=== PATIENT | male | born 2000 | race Caucasian/White ===

== ENCOUNTER 2021-05-06 22:19 | Emergency (ER) | payer OTHER, SELFPAY ==
[2021-05-06 22:26] VITALS: BP 112/61; PULSE 78; RESP 16; TEMP 36.7; O2SAT 98; BMI 22.1
[2021-05-06 22:59] LABS: IDNOW Serial# 9DD0AD1C; Strep A Nucleic Acid Negative (Negative)
[2021-05-06 23:04] LABS: COVID-19 Test Negative (Negative)
--- NOTE | 2021-05-06 23:21 | ED.URI ---
HPI - URI/Sore Throat General Chief Complaint: Upper Respiratory Symptoms Stated Complaint: sore throat, congestion Source: patient Mode of arrival: ambulatory Limitations: no limitations History of Present Illness HPI Narrative: 20 yold male presents to the ED for sore throat, runny nose, and headache that started today. patient denies chest pain, shortness, fever, chills, chest pain, or shortness of breath. Patient states he is vaccinated against covid. MD elicited complaint: cough Related Data Allergies Allergy/AdvReac Type Severity Reaction Status Date / Time No Known Allergies Allergy Verified 05/06/21 22:41 [No Known Allergies*] Review of Systems Review of Systems: Yes all other systems are reviewed and are negative Constitutional: Constitutional: Reports as per HPI, Reports no additional constitutional complaints and Reports body ache(s) Eyes: Eyes: Reports as per HPI and Reports no additional eye complaints ENT: Reports system reviewed and no additional complaints, except as documented, Reports as per HPI, Reports nasal congestion and Reports sore throat Cardiovascular: Cardiovascular: Reports as per HPI and Reports no additional cardiovascular complaints Respiratory: Respiratory: Reports as per HPI and Reports no additional respiratory complaints Gastrointestinal: Gastrointestinal: Reports as per HPI and Reports no additional gastrointestinal complaints Musculoskeletal: Musculoskeletal: Reports no additional musculoskeletal complaints and Reports as per HPI Neurologic: Reports system reviewed and no additional complaints, except as documented and Reports as per HPI Psychiatric: Psychiatric: Reports no additional psychiatric complaints and Reports as per HPI [facility] Social History Social History Advance Directives: No Advance Directives Information Provided: Yes Physical Exam Vital Signs: Vital Signs: Last Vital Signs Temp 98.0 F 05/06/21 22:26 Pulse 78 05/06/21 22:26 Resp 16 05/06/21 22:26 BP 112/61 05/06/21 22:26 Pulse Ox 98 05/06/21 22:26 Body Mass Index 22.1 Const: General: cooperative, healthy appearing, comfortable, no acute distress, well developed, alert, awake and Physically active Orientation/consciousness: patient oriented x3 HENMT: Head: Yes normal to inspection, Yes No palpable skull fracture present, Yes normocephalic, Yes atraumatic, No abrasion, No Acrocyanosis present, No Rothman's sign, No contusion, No cranial bruits, No hematoma, No laceration, No occipital foramen tenderness, No palpable skull fracture, No raccoon eyes, No scalp lesion, No scalp tenderness, No Temporal artery tenderness present and No periorbital ecchymosis Ears: hearing grossly normal bilaterally, external ears normal, TM's normal bilaterally, EAC's normal, mastoids normal and no periauricular adenopathy Face and sinus: Yes normal facial exam and Yes sinuses nontender Throat: Yes posterior oropharynx normal, Yes tonsils normal and Yes uvula midline Eyes: General: appearance normal, both eyes and all related structures Neck: Neck: Yes normal visual inspection, Yes full ROM, Yes no lymphadenopathy, Yes no meningeal signs, Yes trachea midline, Yes supple and No tender Chest: Chest palpation & inspection: normal inspection of the chest and normal palpation of entire chest wall Resp: Effort & Inspection: normal respiratory effort and able to speak in complete sentences Auscultation: clear to auscultation bilaterally Cardio: Jugular venous distension: no JVD Heart sounds: S1 normal heart sound present and S2 normal heart sound present GI: Inspection: Yes normal to inspection and No abdominal wall ecchymosis Palpation (GI): Soft to palpation, not firm, nontender, no guarding and not rigid : General: No CVA tenderness and Yes no CVA tenderness Back/Spine/Pelvis: Back: no CVA tenderness, No CVA tenderness and No back tenderness Skin: General skin exam: no rashes or lesions noted and elasticity normal Neuro: General: patient oriented x3, gait normal, no meningeal signs and CN's II-XI intact bilaterally Cranial nerves: Yes CN's II-XII intact bilaterally Extrem: General: Yes normal to inspection and Yes full ROM Psych: Appearance: grossly normal, well kempt and not disheveled Course Course Course Narrative: Patient sent for COVID swab strep test. Reevaluation(s) Reevaluation #1: COVID/strep test negative. Patient not in distress. Patient is safe for discharge Time: 23:56 MDM - URI/Sore Throat MDM Narrative Medical decision making narrative: Viral syndrome Lab Data Labs: Lab Results 05/06/21 05/06/21 Range/Units 22:43 22:43 COVID-19 (INDIGO) Negative (Negative) COVID-19 Clin Com See Note S. pyogenes GrpA SHAHNAZ Negative (Negative) Discharge Plan Discharge Clinical Impression: Viral syndrome Patient Disposition: Home, Self-Care Instructions: Viral Syndrome (ED) Additional Instructions: Your covid and strep test came back negative. Return to the ED for any chest pain, shortness of breath, weakness, dizziness, drooling, change in voice, inability to tolerate solid foods/liquids or any other concerning symptoms. Interventions: ED Discharge Assessment Last Done: 05/07/21 00:06 Discharge Date/Time: 05/07/21 00:07 Print Language: Jordanian
== END 2021-05-07 00:07 | disposition home or self-care (01) ==
PROVIDERS: Emergency Provider Internal Medicine; PCP Pediatrics
DX: B34.9 Viral infection, unspecified (principal); Z20.822 Contact with and (suspected) exposure to COVID-19
CPT/HCPCS: 36415; 87635; 87651; 99283

== ENCOUNTER 2024-04-18 01:20 | Emergency (ER) | payer SELFPAY ==
[2024-04-18 01:31] VITALS: BP 137/85; PULSE 81; RESP 18; TEMP 36.9; O2SAT 98; BMI 28.0
[2024-04-18 04:31] VITALS: BP 115/72; PULSE 65; RESP 16; O2SAT 98
[2024-04-18] MEDS: Fluorescein Sodium STRIP 1 STRIP EYE-BOTH (04:33)
--- NOTE | 2024-04-18 04:34 | ED_ITS ---
HPI - Eye Problem General Chief complaint: Eye Problems Stated complaint: Eye Pain Burning Itchy Time Seen by Provider: 04/18/24 04:17 Source: patient Mode of arrival: ambulatory Limitations: no limitations History of Present Illness ED Provider: Dr. Swathi Walton HPI Narrative: Patient comes to the emergency room complaining of bilateral eye burning, gritty sensation, watering, unable to open them. Patient denies any trauma, no welding. Patient states he woke up with his eyelids feeling puffy. Patient denies any chemical spills in his eyes. Patient states that over the last 4 eriberto rs, his eyes have gradually been feeling a little bit better. Patient denies any URI infections. Denies any discharge, no ear pain Related Data Previous Rx's ?Medication ?Instructions ?Recorded cetirizine 0.24 % eye drops in a 1 drp ophthalmic (eye) BID #30 ea 04/18/24 dropperette Allergies Allergy/AdvReac Type Severity Reaction Status Date / Time No Known Allergies Allergy Verified 04/18/24 01:33 [No Known Allergies*] Review of Systems Review of Systems: Constitutional : No Weight loss, No Fever, No Chills, No Night Sweats, No Fatigue, No Malaise ENT/Mouth : No Hearing loss, No Ear Pain, No Nasal Congestion, No Sinus Pain, No Hoarseness, No sore throat, No Rhinorrhea, No Swallowing Difficulty Eyes: Complaining of a queasy sensation, burning sensation, watering bilaterally, no discharge, no visual changes Cardiovascular : No Chest Pain, No SOB, No Dyspnea on Exertion, No Orthopnea, No Edema, No Palpitations Respiratory : No Cough, No Sputum, No Wheezing, No Smoke Exposure, No Dyspnea Gastrointestinal : No Nausea, No Vomiting, No Diarrhea, No Constipation, No abdominal Pain, No Hematochezia, No Melena Genitourinary : no irregular bleeding, No Dysuria, No Urinary Frequency, No Hematuria, No Urinary Incontinence, No Urgency, No Flank Pain, No Urinary Flow Changes, No Hesitancy Musculoskeletal : No joint pain, No Myalgias, No Joint Swelling Skin : No Skin Lesions, No rash Neuro : No Weakness, No Numbness, No Paresthesias, No Loss of Consciousness, No Dizziness, No Headache Psych : No Anxiety/Panic, No Depression, No SI/HI/AH/VH, No Social Issues, Heme/Lymph: No Bruising, No Bleeding,No Lymphadenopathy Endocrine : No Polyuria, No Polydipsia, No Temperature Intolerance [facility] Social History Social History Advance Directives: No Advance Directives Information Provided: Yes Do you have a plan to hurt others: No Plan Physical Exam Vital Signs: Vital Signs: Last Vital Signs Temp 98.4 F 04/18/24 01:31 Pulse 65 04/18/24 04:31 Resp 16 04/18/24 04:31 BP 115/72 04/18/24 04:31 Pulse Ox 98 04/18/24 04:31 O2 Del Method Room Air 04/18/24 04:31 BMI result Body Mass Index 28.0 Const: Other: Appearance: Alert. Oriented X3. No acute distress. Eyes: Pupils equal, round and reactive to light. Eyes are not erythematous/no conjunctival injection. Fluorescein stain with Wood's lamp negative for corneal abrasion ENT: Pharynx normal. Neck: Normal inspection. Neck supple. No lymph nodes noted. No crepitus CVS: Normal heart rate and rhythm. Pulses normal. Normal S1 and S2 Respiratory: No respiratory distress. Breath sounds normal. No Wheezing. No rales Abdomen: Soft and nontender. No rigidity. No distention. Skin: Skin warm and dry. Normal skin color. Normal skin turgor. Extremities: No lower extremity edema. No Lacerations. No Rash Neuro: Oriented X 3. No motor deficit. No sensory deficit. Moving all e xtremities. No slurred speech. CN 2 through 12 grossly intact Psych: calm, cooperative, normal affect Medications Administered Discontinued Medications Generic Name Dose Route Start Last Admin Trade Name Ana PRN Reason Stop Dose Admin Fluorescein Sodium 1 strip 04/18/24 04:03 04/18/24 04:33 Fluorescein Sodium Strip EYE-BOTH 04/18/24 04:04 1 strip ONCE ONE Administration Medical Decision Making Medical Decision Making MDM Narrative: I discussed the physical exam with the patient, patient likely has allergic conjunctivitis Discharge Plan Discharge Clinical Impression: Allergic conjunctivitis Patient Disposition: Home, Self-Care Instructions: Conjunctivitis (ED) Additional Instructions: Please follow-up with your primary care physician tomorrow. If you have any worsening or new symptoms, please return to the emergency room or call 911 Prescriptions: New cetirizine 0.24 % dropperette 1 drp ophthalmic (eye) BID Qty: 30 0RF Print Language: Lithuanian
[2024-04-18 04:40] VITALS: BP 115/72; PULSE 65; RESP 16; TEMP 36.6; O2SAT 98
== END 2024-04-18 04:40 | disposition home or self-care (01) ==
PROVIDERS: Emergency Provider Emergency Medicine
DX: H10.13 Acute atopic conjunctivitis, bilateral (principal)
CPT/HCPCS: 99282; 99283